=== PATIENT | male | born 1930 | race Caucasian/White ===

== ENCOUNTER 2016-08-19 11:40 | Emergency (ER) | payer MEDICARE, OTHER ==
[~2016-08-19] VITALS: Ht 180.3 cm; Wt 77.0 kg
[~2016-08-19 11:40] MED LIST: APIX5TAB PO; ASCO500T6 PO; CELE200C PO; CEPH-376 PO; DILT120C9 PO; DOCU-30 PO; FERR325T20 PO; METH500T97 PO; METO25TA35 PO; PANT40TA3 PO
[2016-08-19] MEDS ORDERED: SODIUM CHLORIDE FLUSH 10ML SYR IVF ONE (12:30)
[2016-08-19] MEDS ORDERED: SODIUM CHLORIDE 0.9% 1,000ML IVBOLUS ONE (12:30)
[2016-08-19 12:33] LABS: ASPARTATE AMINO TRANSFERASE 10 U/L (15-37); BLOOD UREA NITROGEN 15 mg/dL (7-18)
[2016-08-19 12:43] LABS: IS PT STATUS REG ER OR PRE ER? YES
[2016-08-19 16:09] VITALS: BP 113/59
== END 2016-08-19 16:54 | disposition home or self-care (01) ==
LOC: ED 16:12
DX: E86.0 Dehydration (principal); R53.1 Weakness; I10 Essential (primary) hypertension; E87.1 Hypo-osmolality and hyponatremia; M19.90 Unspecified osteoarthritis, unspecified site; Z86.73 Personal history of transient ischemic attack (TIA), and cerebral infarction without residual deficits; Z85.038 Personal history of other malignant neoplasm of large intestine; Z87.891 Personal history of nicotine dependence
CPT/HCPCS: 36415; 71010; 80053; 81001; 83880; 84484; 85025; 85610; 87086; 93005; 96360; 99285; J7030